=== PATIENT | male | born 1935 | race Caucasian/White ===

== ENCOUNTER 2017-01-10 13:19 | Observation (INO) | payer MEDICARE ==
[~2017-01-10] VITALS: Ht 185.4 cm; Wt 85.3 kg
[2017-01-10] MEDS ORDERED: AVAPRO300 MG PO (17:28)
[2017-01-10] MEDS ORDERED: HYDRALAZINE HCL50 MG PO (17:29)
[2017-01-10] MEDS ORDERED: HYDROCHLOROTHIA25 MG PO (17:29)
[2017-01-10] MEDS ORDERED: LEVOTHYROXINE100 MCG PO (17:30)
[2017-01-10] MEDS ORDERED: TENORMIN 25 MG25 MG PO (17:30)
[2017-01-10] MEDS ORDERED: KLOR-CON 1010 MEQ PO (17:31)
[2017-01-10] MEDS ORDERED: CRESTOR20 MG PO (17:31)
[2017-01-10] MEDS ORDERED: ASPIRIN81 MG PO (17:32)
[2017-01-10] MEDS ORDERED: NATURAL LAXATIV25 MG PO (17:33)
[2017-01-10] MEDS ORDERED: AVODART 0.5 MG0.5 MG PO (17:33)
[2017-01-10] MEDS ORDERED: PLAVIX 75 MG TA75 MG PO (17:33)
[2017-01-10] MEDS ORDERED: VITAMIN D2000 UNIT PO (17:34)
[2017-01-10] MEDS ORDERED: CORDARONE 200M200 MG PO (17:34)
[2017-01-10] MEDS ORDERED: NORVASC 5 MG TAB5 MG PO (17:35)
[2017-01-10] MEDS ORDERED: NITROSTAT 0.40.4 MG SL (17:35)
[2017-01-10] MEDS ORDERED: IMDUR ER TAB 3030 MG PO (17:35)
[2017-01-10] MEDS ORDERED: VITAMIN B-12500 MCG PO (17:36)
[2017-01-10] MEDS ORDERED: GINGER500 MG PO (17:37)
[2017-01-10] MEDS ORDERED: LORCET PLUS 7.1 EACH PO (17:38)
[2017-01-11 04:09] LABS: RED BLOOD COUNT 4.4 M/UL (4.20-5.50); WHITE BLOOD COUNT 7.9 K/UL (4.5-11.0)
[2017-01-11 04:30] LABS: BUN/CREATININE RATIO 19 (0-10)
[2017-01-11] MEDS ORDERED: CARVEDILOL3.125 MG PO (15:59)
[2017-01-11] MEDS ORDERED: PRILOSEC OTC20 MG PO ×2 (16:01→16:36)
== END 2017-01-11 16:34 | disposition home or self-care (01) ==
LOC: PROG CARE 16:30
PROVIDERS: Physician Assistant Medical; ADMIT Emergency Medicine
DX: R07.89 Other chest pain (principal); I71.2 Thoracic aortic aneurysm, without rupture; I25.10 Atherosclerotic heart disease of native coronary artery without angina pectoris; I10 Essential (primary) hypertension; E03.9 Hypothyroidism, unspecified; N40.0 Benign prostatic hyperplasia without lower urinary tract symptoms; E78.5 Hyperlipidemia, unspecified; I71.4 Abdominal aortic aneurysm, without rupture; M54.5 Low back pain; G89.29 Other chronic pain; G47.00 Insomnia, unspecified; D64.9 Anemia, unspecified; M19.90 Unspecified osteoarthritis, unspecified site; Z95.1 Presence of aortocoronary bypass graft; Z98.61 Coronary angioplasty status; Z79.891 Long term (current) use of opiate analgesic; Z79.899 Other long term (current) drug therapy; Z79.82 Long term (current) use of aspirin; Z88.8 Allergy status to other drugs, medicaments and biological substances; Z96.641 Presence of right artificial hip joint; Z87.891 Personal history of nicotine dependence
CPT/HCPCS: ECHO; 36415; 78452; 80048; 80061; 82550; 82553; 83735; 84484; 85025; 93005; 93017; 93306; A9502; G0378; G0379; J1650; J2785

== ENCOUNTER → 2020-12-22 | Outpatient (CLI) | payer MEDICARE ==
[~2020-12-22] MED LIST: ASPIRIN81 MG PO; AUGMENTIN 875-1 EACH PO; AVAPRO300 MG PO; AVODART 0.5 MG0.5 MG PO; CARVEDILOL3.125 MG PO; CORDARONE 200M200 MG PO; COZAAR 50MG TAB50 MG PO; CRESTOR20 MG PO; ELIQUIS 5 MG TAB5 MG PO; FERROUS SULFAT324 MG PO; FLOMAX0.4 MG PO; GINGER500 MG PO; HYDRALAZINE HCL50 MG PO; HYDROCHLOROTHIA25 MG PO; IMDUR ER TAB 3030 MG PO; INDAPAMIDE2.5 MG PO; K-DUR TAB 20 M20 MEQ PO; KLOR-CON 1010 MEQ PO; LEVOTHYROXINE100 MCG PO; LISINOPRIL2.5 MG PO; LISINOPRIL20 MG PO; LORCET PLUS 7.1 EACH PO; MECLIZINE HCL25 MG PO; NATURAL LAXATIV25 MG PO; NITROGLYCERIN0.4 MG SL; NITROSTAT 0.40.4 MG SL; NORVASC 5 MG TAB5 MG PO; OMEPRAZOLE20 MG PO; PLAVIX 75 MG TA75 MG PO; PRILOSEC OTC20 MG PO; SYNTHROID75 MCG PO; TENORMIN 25 MG25 MG PO; VITAMIN B-12500 MCG PO; VITAMIN D2000 UNIT PO; [UNRECOGNIZED DRUG - OTHER] PO
== END ==
LOC: HEART 5 08:53
DX: I48.91 Unspecified atrial fibrillation (principal); R93.1 Abnormal findings on diagnostic imaging of heart and coronary circulation; I08.3 Combined rheumatic disorders of mitral, aortic and tricuspid valves; I31.3 Pericardial effusion (noninflammatory); I27.20 Pulmonary hypertension, unspecified
CPT/HCPCS: 93306